=== PATIENT | male | born 1960 | race Caucasian/White ===

== ENCOUNTER 2017-10-01 17:47 | Inpatient (IN) | payer MEDICARE, MEDICAID ==
[~2017-10-01] VITALS: Ht 175.3 cm; Wt 77.5 kg
[2017-10-01] MEDS ORDERED: acetaminophen 325mg tablet PO PRN (19:15)
[2017-10-01] MEDS ORDERED: magnesium hydroxide 30ml (MOM) UD suspension PO PRN (19:15)
[2017-10-01] MEDS ORDERED: mag hydrox/Alum hydrox/simeth 30ml oral suspension PO PRN (19:15)
[2017-10-01 20:00] VITALS: BP 107/76
[2017-10-01] MEDS: hydrOXYzine 25 MG tablet PO PRN (20:12)
[2017-10-01] MEDS: LORazepam 1 MG tablet PO PRN (22:51)
[2017-10-02] MEDS ORDERED: buprenorphine/naloxone 2-0.5mg sublingual tablet SL ONE ×2 (07:50→21:20)
[2017-10-02] MEDS ORDERED: diphenoxylate/atropine tablet (Lomotil) PO PRN (07:50)
[2017-10-02 08:15] VITALS: BP 126/76
[2017-10-02 09:05] LABS: HEMOGLOBIN A1C 6.3 % (4.5-6.2)
[2017-10-02] MEDS ORDERED: mag hydrox/Alum hydrox/simeth 30ml oral suspension PO PRN (09:05)
[2017-10-02] MEDS ORDERED: acetaminophen 325mg tablet PO PRN ×2 (09:05)
[2017-10-02] MEDS ORDERED: HYDROcodone/acetaminophen 5mg/325mg tablet PO PRN (09:05)
[2017-10-02] MEDS ORDERED: HYDROcodone/acetaminophen 10/325mg tab PO PRN (09:05)
[2017-10-02] MEDS ORDERED: ondansetron/PF 4mg/2ml inj IV PRN (09:05)
[2017-10-02] MEDS ORDERED: magnesium hydroxide 30ml (MOM) UD suspension PO PRN (09:05)
[2017-10-02] MEDS ORDERED: diphenhydrAMINE 50 mg/ml inj IV PRN (09:05)
[2017-10-02] MEDS ORDERED: HYDROmorphone 1 mg/ml syringe IV PRN ×2 (09:05)
[2017-10-02] MEDS ORDERED: acetaminophen 650mg rectal suppository RC PRN (09:05)
[2017-10-02] MEDS ORDERED: morphine 4 MG/ML inj SYRINge IV PRN ×2 (09:05)
[2017-10-02] MEDS ORDERED: metoclopramide 5 mg/ml inj IV PRN (09:05)
[2017-10-02] MEDS ORDERED: bisacodyl 10mg suppository rectal RC PRN (09:05)
[2017-10-02 09:09] LABS: CHOL/HDL RATIO 3.3 (0.00-4.99); CHOLESTEROL 156 MG/DL (0-200); HDL CHOLESTEROL 48 MG/DL (35-60); LDL CHOLESTEROL 95 MG/DL (50-100); TRIGLYCERIDES 57 MG/DL (20-135)
[2017-10-02 09:37] LABS: MAGNESIUM 1.8 MG/DL (1.5-2.4)
[2017-10-02] MEDS ORDERED: NO HOME MEDS (10:23)
[2017-10-02] MEDS ORDERED: buprenorphine/naloxone 2-0.5mg sublingual tablet SL STA ×2 (10:52→17:42)
[2017-10-02] MEDS ORDERED: cloNIDine 0.1 mg tablet PO ONE (10:55)
[2017-10-02] MEDS: hydrOXYzine 25 MG tablet PO PRN (17:07)
[2017-10-02 19:00] VITALS: BP 121/76
[2017-10-02] MEDS ORDERED: heparin, porcine 5000 units/ml vial SQ SCH (20:00)
[2017-10-02] MEDS: docusate sod 100mg capsule PO SCH ×2 (20:00→20:28)
[2017-10-02] MEDS: cloNIDine 0.1 mg tablet PO SCH (20:28)
[2017-10-02] MEDS ORDERED: BUPRENORPHINE 2 MG SL ONE (21:00)
[2017-10-02] MEDS ORDERED: temazepam 15mg capsule PO PRN (21:00)
[2017-10-02] MEDS ORDERED: traZODone 50mg tablet PO SCH (21:00)
[2017-10-02] MEDS: traZODone 50mg tablet PO SCH ×2 (21:05→21:39)
[2017-10-03] MEDS: LORazepam 1 MG tablet PO PRN ×2 (07:31→15:55)
[2017-10-03] MEDS: pantoprazole 40mg Tablet.DR PO SCH (07:32)
[2017-10-03] MEDS: cloNIDine 0.1 mg tablet PO SCH ×3 (07:33→21:11)
[2017-10-03 07:44] VITALS: BP 104/55
[2017-10-03] MEDS: docusate sod 100mg capsule PO SCH ×2 (07:50→19:06)
[2017-10-03] MEDS ORDERED: buprenorphine/naloxone 2-0.5mg sublingual tablet SL SCH (08:00)
[2017-10-03] MEDS: hydrOXYzine 25 MG tablet PO PRN ×2 (13:31→19:34)
[2017-10-03 19:00] VITALS: BP 124/75
[2017-10-03] MEDS: buprenorphine/naloxone 2-0.5mg sublingual tablet SL SCH (19:06)
[2017-10-03] MEDS: mirtazapine 15mg tablet PO SCH (21:11)
[2017-10-03] MEDS: traZODone 50mg tablet PO SCH (21:11)
[2017-10-04] MEDS: LORazepam 1 MG tablet PO PRN ×2 (00:04→09:56)
[2017-10-04] MEDS: hydrOXYzine 25 MG tablet PO PRN ×2 (02:12→07:47)
[2017-10-04] MEDS: buprenorphine/naloxone 2-0.5mg sublingual tablet SL SCH ×2 (07:04→20:19)
[2017-10-04] MEDS: cloNIDine 0.1 mg tablet PO SCH ×4 (07:04→20:15)
[2017-10-04] MEDS: pantoprazole 40mg Tablet.DR PO SCH (07:04)
[2017-10-04] MEDS: docusate sod 100mg capsule PO SCH ×2 (07:06→20:00)
[2017-10-04 08:00] VITALS: BP 120/74
[2017-10-04] MEDS ORDERED: LORazepam 1 MG tablet PO PRN (14:00)
[2017-10-04 15:20] VITALS: BP 132/77
[2017-10-04 19:00] VITALS: BP 110/77
[2017-10-04] MEDS: mirtazapine 15mg tablet PO SCH (20:14)
[2017-10-04] MEDS: traZODone 50mg tablet PO SCH (20:14)
[2017-10-04] MEDS: OLANZapine 2.5MG tablet PO SCH (20:16)
[2017-10-04] MEDS: olanzapine 10mg tablet PO PRN (23:14)
[2017-10-05] MEDS ORDERED: olanzapine 10mg tablet PO PRN (01:20)
[2017-10-05 08:00] VITALS: BP 99/68
[2017-10-05] MEDS: docusate sod 100mg capsule PO SCH ×2 (08:00→20:00)
[2017-10-05] MEDS: cloNIDine 0.1 mg tablet PO SCH ×2 (08:00→20:00)
[2017-10-05] MEDS: pantoprazole 40mg Tablet.DR PO SCH (08:15)
[2017-10-05] MEDS: buprenorphine/naloxone 2-0.5mg sublingual tablet SL SCH ×2 (08:16→20:33)
[2017-10-05] MEDS: LORazepam 1 MG tablet PO PRN ×2 (11:51→20:33)
[2017-10-05] MEDS: hydrOXYzine 25 MG tablet PO PRN ×2 (14:42→22:04)
[2017-10-05] MEDS: diphenhydrAMINE 25mg capsule PO PRN (14:43)
[2017-10-05] MEDS: ondansetron 4mg rapidly disintigrating tab PO PRN (14:43)
[2017-10-05 20:00] VITALS: BP 104/71
[2017-10-05] MEDS: OLANZapine 2.5MG tablet PO SCH (20:33)
[2017-10-05] MEDS: traZODone 50mg tablet PO SCH (20:37)
[2017-10-05] MEDS: mirtazapine 15mg tablet PO SCH (20:57)
[2017-10-06] MEDS: olanzapine 10mg tablet PO PRN (00:19)
[2017-10-06] MEDS: diphenhydrAMINE 25mg capsule PO PRN ×2 (03:38→22:17)
[2017-10-06] MEDS: pantoprazole 40mg Tablet.DR PO SCH (07:59)
[2017-10-06 08:00] VITALS: BP 107/74
[2017-10-06] MEDS ORDERED: buprenorphine/naloxone 2-0.5mg sublingual tablet SL SCH ×2 (08:00→18:00)
[2017-10-06] MEDS: docusate sod 100mg capsule PO SCH ×2 (08:00→20:26)
[2017-10-06] MEDS: cloNIDine 0.1 mg tablet PO SCH ×2 (08:00→20:00)
[2017-10-06] MEDS: LORazepam 1 MG tablet PO PRN ×2 (08:29→22:17)
[2017-10-06] MEDS ORDERED: tuberculin, purif. prot. deriv. 5 units/0.1ml ID ONE (11:05)
[2017-10-06] MEDS: QUEtiapine 25mg tablet PO PRN (13:09)
[2017-10-06] MEDS: hydrOXYzine 25 MG tablet PO PRN ×2 (17:42→23:44)
[2017-10-06] MEDS ORDERED: buprenorphine/naloxone 2-0.5mg sublingual tablet SL ONE (19:15)
[2017-10-06 19:39] VITALS: BP 124/70
[2017-10-06] MEDS: mirtazapine 15mg tablet PO SCH (20:26)
[2017-10-06] MEDS ORDERED: quetiapine 100mg tablet PO SCH (21:00)
[2017-10-06] MEDS: traZODone 50mg tablet PO SCH (22:17)
[2017-10-07] MEDS: QUEtiapine 25mg tablet PO PRN (01:37)
[2017-10-07] MEDS: docusate sod 100mg capsule PO SCH ×2 (07:51→20:42)
[2017-10-07] MEDS: cloNIDine 0.1 mg tablet PO SCH (07:52)
[2017-10-07] MEDS: buprenorphine/naloxone 2-0.5mg sublingual tablet SL SCH ×2 (07:52→18:31)
[2017-10-07] MEDS: pantoprazole 40mg Tablet.DR PO SCH (07:52)
[2017-10-07] MEDS: hydrOXYzine 25 MG tablet PO PRN ×2 (07:59→16:27)
[2017-10-07 08:00] VITALS: BP 125/80
[2017-10-07] MEDS: LORazepam 1 MG tablet PO PRN ×2 (09:29→21:59)
[2017-10-07] MEDS ORDERED: lurasidone 20mg tablet PO SCH (18:00)
[2017-10-07 19:28] VITALS: BP 125/81
[2017-10-07] MEDS ORDERED: prazosin 1mg capsule PO SCH (21:00)
[2017-10-07] MEDS: mirtazapine 15mg tablet PO SCH (21:59)
[2017-10-07] MEDS: diphenhydrAMINE 25mg capsule PO PRN (21:59)
[2017-10-08] MEDS: hydrOXYzine 25 MG tablet PO PRN ×2 (00:25→13:49)
[2017-10-08] MEDS: diphenhydrAMINE 25mg capsule PO PRN (04:17)
[2017-10-08] MEDS: pantoprazole 40mg Tablet.DR PO SCH (07:23)
[2017-10-08] MEDS: buprenorphine/naloxone 2-0.5mg sublingual tablet SL SCH ×3 (07:23→18:43)
[2017-10-08] MEDS: cloNIDine 0.1 mg tablet PO SCH (07:23)
[2017-10-08] MEDS: docusate sod 100mg capsule PO SCH ×2 (07:23→21:30)
[2017-10-08 07:48] VITALS: BP 120/68
[2017-10-08] MEDS: LORazepam 1 MG tablet PO PRN ×2 (07:57→22:55)
[2017-10-08] MEDS ORDERED: OLANZapine 2.5MG tablet PO ONE (16:55)
[2017-10-08 19:11] VITALS: BP 145/76
[2017-10-08] MEDS: OLANZapine 5mg rapidly disint. tablet PO PRN (20:13)
[2017-10-08 20:30] VITALS: BP 121/78
[2017-10-08] MEDS: mirtazapine 15mg tablet PO SCH (21:30)
[2017-10-08] MEDS: prazosin 1mg capsule PO SCH (21:31)
[2017-10-09] MEDS: hydrOXYzine 25 MG tablet PO PRN ×4 (00:29→21:44)
[2017-10-09] MEDS: OLANZapine 5mg rapidly disint. tablet PO PRN ×4 (01:10→23:14)
[2017-10-09] MEDS: cloNIDine 0.1 mg tablet PO SCH (07:05)
[2017-10-09] MEDS: buprenorphine/naloxone 2-0.5mg sublingual tablet SL SCH ×2 (07:07→19:09)
[2017-10-09] MEDS: docusate sod 100mg capsule PO SCH ×2 (07:08→21:42)
[2017-10-09] MEDS: pantoprazole 40mg Tablet.DR PO SCH (07:09)
[2017-10-09 08:19] VITALS: BP 105/68
[2017-10-09] MEDS: LORazepam 1 MG tablet PO PRN ×2 (11:24→21:44)
[2017-10-09] MEDS ORDERED: lurasidone 20mg tablet PO SCH (18:00)
[2017-10-09 19:00] VITALS: BP 115/74
[2017-10-09] MEDS ORDERED: zolpidem 5mg tablet PO SCH (21:00)
[2017-10-09] MEDS: prazosin 1mg capsule PO SCH (21:42)
[2017-10-09] MEDS: mirtazapine 15mg tablet PO SCH (21:42)
[2017-10-10] MEDS ORDERED: temazepam 15mg capsule PO ONE (01:10)
[2017-10-10 07:51] VITALS: BP 106/77
[2017-10-10] MEDS: buprenorphine/naloxone 2-0.5mg sublingual tablet SL SCH ×2 (08:09→19:02)
[2017-10-10] MEDS: LORazepam 1 MG tablet PO PRN ×2 (08:13→17:54)
[2017-10-10] MEDS: pantoprazole 40mg Tablet.DR PO SCH (08:14)
[2017-10-10] MEDS: docusate sod 100mg capsule PO SCH ×2 (08:14→20:37)
[2017-10-10 08:48] LABS: URINE AMPHETAMINE SCREEN NEGATIVE (Neg); URINE BARBITUATE SCREEN NEGATIVE (Neg); URINE BENZODIAZEPINES SCREEN POSITIVE (Neg); URINE CANNABINOID SCREEN POSITIVE (Neg); URINE COCAINE SCREEN NEGATIVE (Neg); URINE METHADONE SCREEN NEGATIVE (Neg); URINE OPIATE SCREEN NEGATIVE (Neg); URINE PHENCYCLIDINE SCREEN NEGATIVE (Neg)
[2017-10-10] MEDS: OLANZapine 5mg rapidly disint. tablet PO PRN ×2 (13:54→21:18)
[2017-10-10] MEDS: hydrOXYzine 25 MG tablet PO PRN (16:00)
[2017-10-10] MEDS: lurasidone 20mg tablet PO SCH (17:50)
[2017-10-10 19:00] VITALS: BP 123/78
[2017-10-10] MEDS: temazepam 15mg capsule PO PRN (20:37)
[2017-10-10] MEDS: mirtazapine 15mg tablet PO SCH (20:37)
[2017-10-10] MEDS: prazosin 5mg capsule PO SCH (21:17)
[2017-10-11] MEDS: OLANZapine 5mg rapidly disint. tablet PO PRN ×2 (03:16→18:50)
[2017-10-11 07:48] VITALS: BP 109/61
[2017-10-11] MEDS: pantoprazole 40mg Tablet.DR PO SCH (08:05)
[2017-10-11] MEDS: hydrOXYzine 25 MG tablet PO PRN ×2 (08:05→21:23)
[2017-10-11] MEDS: buprenorphine/naloxone 2-0.5mg sublingual tablet SL SCH ×2 (08:05→18:49)
[2017-10-11] MEDS: docusate sod 100mg capsule PO SCH ×2 (08:05→21:22)
[2017-10-11] MEDS: acetaminophen 325mg tablet PO PRN ×2 (12:45→21:23)
[2017-10-11] MEDS: LORazepam 1 MG tablet PO PRN ×2 (12:45→21:23)
[2017-10-11] MEDS: lurasidone 20mg tablet PO SCH (17:59)
[2017-10-11] MEDS: ondansetron 4mg rapidly disintigrating tab PO PRN (18:49)
[2017-10-11 19:00] VITALS: BP 119/76
[2017-10-11] MEDS: mirtazapine 15mg tablet PO SCH (21:22)
[2017-10-11] MEDS: prazosin 5mg capsule PO SCH (21:22)
[2017-10-11] MEDS: temazepam 15mg capsule PO PRN (21:23)
[2017-10-12] MEDS: OLANZapine 5mg rapidly disint. tablet PO PRN (02:47)
[2017-10-12] MEDS: hydrOXYzine 25 MG tablet PO PRN ×2 (04:53→16:26)
[2017-10-12 08:00] VITALS: BP 116/72
[2017-10-12] MEDS: pantoprazole 40mg Tablet.DR PO SCH (08:01)
[2017-10-12] MEDS: docusate sod 100mg capsule PO SCH ×2 (08:47→20:29)
[2017-10-12] MEDS: buprenorphine/naloxone 2-0.5mg sublingual tablet SL SCH ×2 (08:47→19:03)
[2017-10-12] MEDS: LORazepam 0.5 MG tablet PO PRN ×2 (09:41→21:14)
[2017-10-12] MEDS ORDERED: gabapentin 100mg capsule PO SCH (12:30)
[2017-10-12] MEDS: lurasidone 20mg tablet PO SCH (18:33)
[2017-10-12] MEDS: ondansetron 4mg rapidly disintigrating tab PO PRN (19:05)
[2017-10-12 19:18] VITALS: BP 109/77
[2017-10-12] MEDS: prazosin 5mg capsule PO SCH (20:29)
[2017-10-12] MEDS: mirtazapine 15mg tablet PO SCH (20:30)
[2017-10-12] MEDS ORDERED: gabapentin 300mg capsule PO ONE (21:00)
[2017-10-12] MEDS: acetaminophen 325mg tablet PO PRN (21:13)
[2017-10-13] MEDS: gabapentin 100mg capsule PO SCH ×2 (07:45→12:39)
[2017-10-13] MEDS: pantoprazole 40mg Tablet.DR PO SCH (07:45)
[2017-10-13] MEDS: docusate sod 100mg capsule PO SCH ×2 (07:46→20:47)
[2017-10-13] MEDS: buprenorphine/naloxone 2-0.5mg sublingual tablet SL SCH ×2 (07:46→18:46)
[2017-10-13 08:00] VITALS: BP 124/74
[2017-10-13] MEDS: LORazepam 0.5 MG tablet PO PRN ×2 (09:16→21:30)
[2017-10-13] MEDS: acetaminophen 325mg tablet PO PRN ×2 (09:17→21:30)
[2017-10-13] MEDS: hydrOXYzine 25 MG tablet PO PRN (12:39)
[2017-10-13] MEDS: ondansetron 4mg rapidly disintigrating tab PO PRN ×2 (12:42→20:47)
[2017-10-13] MEDS: lurasidone 20mg tablet PO SCH (17:49)
[2017-10-13 20:10] VITALS: BP 127/70
[2017-10-13] MEDS: prazosin 5mg capsule PO SCH (20:42)
[2017-10-13] MEDS: mirtazapine 15mg tablet PO SCH (20:43)
[2017-10-13] MEDS: temazepam 15mg capsule PO PRN (20:46)
[2017-10-13] MEDS ORDERED: gabapentin 400mg capsule PO SCH (21:00)
[2017-10-14] MEDS: hydrOXYzine 25 MG tablet PO PRN ×3 (03:30→23:32)
[2017-10-14] MEDS: acetaminophen 325mg tablet PO PRN (06:59)
[2017-10-14] MEDS: LORazepam 0.5 MG tablet PO PRN (06:59)
[2017-10-14] MEDS: buprenorphine/naloxone 2-0.5mg sublingual tablet SL SCH ×2 (07:55→17:50)
[2017-10-14] MEDS: docusate sod 100mg capsule PO SCH ×2 (07:55→20:17)
[2017-10-14] MEDS: pantoprazole 40mg Tablet.DR PO SCH (07:55)
[2017-10-14] MEDS: gabapentin 400mg capsule PO SCH ×3 (07:55→20:17)
[2017-10-14 08:00] VITALS: BP 117/80
[2017-10-14] MEDS: lurasidone 20mg tablet PO SCH (17:49)
[2017-10-14] MEDS: ondansetron 4mg rapidly disintigrating tab PO PRN (17:53)
[2017-10-14 19:22] VITALS: BP 122/74
[2017-10-14] MEDS: prazosin 5mg capsule PO SCH (20:17)
[2017-10-14] MEDS: temazepam 15mg capsule PO PRN (20:17)
[2017-10-14] MEDS: mirtazapine 15mg tablet PO SCH (20:17)
[2017-10-15] MEDS: acetaminophen 325mg tablet PO PRN (07:02)
[2017-10-15 08:00] VITALS: BP 102/67
[2017-10-15] MEDS: pantoprazole 40mg Tablet.DR PO SCH (08:06)
[2017-10-15] MEDS: docusate sod 100mg capsule PO SCH ×2 (08:06→21:55)
[2017-10-15] MEDS: buprenorphine/naloxone 2-0.5mg sublingual tablet SL SCH ×2 (08:06→18:54)
[2017-10-15] MEDS ORDERED: gabapentin 400mg capsule PO ONE (08:15)
[2017-10-15] MEDS: gabapentin 400mg capsule PO SCH ×2 (12:43→21:55)
[2017-10-15] MEDS: lurasidone 60mg tablet PO SCH (18:04)
[2017-10-15 19:00] VITALS: BP 140/79
[2017-10-15] MEDS: temazepam 15mg capsule PO PRN (21:54)
[2017-10-15] MEDS: mirtazapine 15mg tablet PO SCH (21:54)
[2017-10-15] MEDS: prazosin 5mg capsule PO SCH (21:56)
[2017-10-16] MEDS: ondansetron 4mg rapidly disintigrating tab PO PRN ×2 (04:04→21:25)
[2017-10-16] MEDS: acetaminophen 325mg tablet PO PRN ×2 (06:48→20:36)
[2017-10-16] MEDS: buprenorphine/naloxone 2-0.5mg sublingual tablet SL SCH ×2 (07:45→18:40)
[2017-10-16] MEDS: docusate sod 100mg capsule PO SCH ×2 (07:46→20:37)
[2017-10-16] MEDS: pantoprazole 40mg Tablet.DR PO SCH (07:46)
[2017-10-16] MEDS: gabapentin 400mg capsule PO SCH ×3 (07:46→20:37)
[2017-10-16 08:13] VITALS: BP 100/64
[2017-10-16] MEDS: hydrOXYzine 25 MG tablet PO PRN ×2 (09:42→20:37)
[2017-10-16] MEDS ORDERED: LIDOcaine 5% patch TP PRN (09:50)
[2017-10-16] MEDS: lurasidone 60mg tablet PO SCH ×2 (18:00→20:47)
[2017-10-16 20:09] VITALS: BP 142/85
[2017-10-16] MEDS: prazosin 5mg capsule PO SCH (20:35)
[2017-10-16] MEDS: mirtazapine 15mg tablet PO SCH (20:37)
[2017-10-16] MEDS ORDERED: OLANZapine 5mg rapidly disint. tablet PO PRN (21:05)
[2017-10-16 21:55] LABS: URINE AMPHETAMINE SCREEN NEGATIVE (Neg); URINE BARBITUATE SCREEN NEGATIVE (Neg); URINE BENZODIAZEPINES SCREEN NEGATIVE (Neg); URINE CANNABINOID SCREEN POSITIVE (Neg); URINE COCAINE SCREEN NEGATIVE (Neg); URINE METHADONE SCREEN NEGATIVE (Neg); URINE OPIATE SCREEN NEGATIVE (Neg); URINE PHENCYCLIDINE SCREEN NEGATIVE (Neg)
[2017-10-17] MEDS: acetaminophen 325mg tablet PO PRN (06:00)
[2017-10-17] MEDS: gabapentin 400mg capsule PO SCH ×2 (07:16→12:27)
[2017-10-17] MEDS: pantoprazole 40mg Tablet.DR PO SCH (07:16)
[2017-10-17] MEDS: buprenorphine/naloxone 2-0.5mg sublingual tablet SL SCH (07:22)
[2017-10-17] MEDS: docusate sod 100mg capsule PO SCH (07:22)
[2017-10-17 07:45] VITALS: BP 101/61
[2017-10-17] MEDS ORDERED: PANT40TA4 PO (08:14)
[2017-10-17] MEDS ORDERED: HYDR50TA65 PO (08:14)
[2017-10-17] MEDS ORDERED: COL100C PO (08:14)
[2017-10-17] MEDS ORDERED: TEMA30CA PO (08:14)
[2017-10-17] MEDS ORDERED: LURA120T PO (08:14)
[2017-10-17] MEDS ORDERED: PRAZ5CAP2 PO (08:14)
[2017-10-17] MEDS ORDERED: GABA-534 PO ×2 (08:14)
[2017-10-17] MEDS ORDERED: BUPR1TAB52 SL (08:14)
[2017-10-17] MEDS ORDERED: MIRT15TA8 PO (08:14)
[2017-10-17] MEDS: hydrOXYzine 25 MG tablet PO PRN (10:04)
[2017-10-17] MEDS ORDERED: LIDOcaine 5% patch TP ONE (11:55)
== END 2017-10-17 13:40 | DRG 885 ==
LOC: ADULT MH 17:47
PROVIDERS: ADMIT Psychiatry & Neurology Psychiatry; ATTEND Psychiatry & Neurology Psychiatry
DX: F33.2 Major depressive disorder, recurrent severe without psychotic features (principal); R45.851 Suicidal ideations; F15.20 Other stimulant dependence, uncomplicated; F19.90 Other psychoactive substance use, unspecified, uncomplicated; F11.21 Opioid dependence, in remission; F12.90 Cannabis use, unspecified, uncomplicated; F14.90 Cocaine use, unspecified, uncomplicated; F43.10 Post-traumatic stress disorder, unspecified; F60.9 Personality disorder, unspecified; G89.4 Chronic pain syndrome; E03.9 Hypothyroidism, unspecified; K30 Functional dyspepsia; L98.9 Disorder of the skin and subcutaneous tissue, unspecified; Z59.0 Homelessness; Z88.8 Allergy status to other drugs, medicaments and biological substances; Z87.442 Personal history of urinary calculi; Z87.820 Personal history of traumatic brain injury; Z71.51 Drug abuse counseling and surveillance of drug abuser
CPT/HCPCS: 36415; 70450; 80061; 80305; 83036; 83735; 84439; 84479; 84480; 87070; 99285; J1170; J3490; Q0163; Q0177

== ENCOUNTER → 2017-10-01 | Emergency (ER) | payer MEDICARE, MEDICAID ==
[~2017-10-01] VITALS: Ht 175.3 cm; Wt 74.7 kg
[~2017-10-01] MED LIST: NO HOME MEDS
[2017-10-01 15:28] LABS: URINE AMPHETAMINE SCREEN POSITIVE (Neg); URINE BARBITUATE SCREEN NEGATIVE (Neg); URINE BENZODIAZEPINES SCREEN NEGATIVE (Neg); URINE CANNABINOID SCREEN POSITIVE (Neg); URINE COCAINE SCREEN NEGATIVE (Neg); URINE METHADONE SCREEN NEGATIVE (Neg); URINE OPIATE SCREEN POSITIVE (Neg); URINE PHENCYCLIDINE SCREEN NEGATIVE (Neg)
[2017-10-01 15:31] LABS: CLARITY,URINE CLEAR (Clear); COLOR,URINE YELLOW (Yellow); GLUCOSE, URINE NEGATIVE (Neg); KETONES,URINE NEGATIVE (Neg); LEUKOCYTE ESTERASE ,URINE NEGATIVE (Neg); NITRITES, URINE NEGATIVE (Neg); OCCULT BLOOD,URINE NEGATIVE (Neg); PROTEIN,URINE NEGATIVE (Neg); UROBILINOGEN,URINE 0.2 E.U/dL (0.2-1.0)
[2017-10-01 15:32] LABS: UA COLLECTION TYPE CLN CATCH MIDSTREAM
[2017-10-01 15:38] LABS: BASOPHILS % (AUTO) 0.2 % (0-1); EOSINOPHILS # (AUTO) 0.1 X10'3 (0-0.9); EOSINOPHILS % (AUTO) 1.1 % (0-6); HEMATOCRIT 41.2 % (42.0-52.0); LYMPHOCYTES # (AUTO) 1.6 X10'3 (1.1-4.8); LYMPHOCYTES % (AUTO) 15.5 % (21-51); MEAN CORPUSCULAR HEMOGLOBIN 29.2 PG (27.0-31.0); MEAN PLATELET VOLUME 8.4 FL (7.4-10.4); MONOCYTES # (AUTO) 0.6 X10'3 (0-0.9); MONOCYTES % (AUTO) 5.9 % (2-12); NEUTROPHILS % (AUTO) 77.3 % (42-75); PLATELET COUNT 282 X10'3 (140-440); RED BLOOD COUNT 4.79 X10'6 (4.70-6.10); RED CELL DISTRIBUTION WIDTH 14.5 % (11.5-14.5); WHITE BLOOD COUNT 10.3 X10'3 (4.5-11.0)
[2017-10-01 15:56] LABS: ALANINE AMINOTRANSFERASE 15 U/L (12-78); ALBUMIN 3.3 G/DL (3.4-5.0); ALBUMIN/GLOBULIN RATIO 0.9 (1.1-1.5); ALKALINE PHOSPHATASE 93 IU/L (46-116); ANION GAP 4 (8-16); ASPARTATE AMINO TRANSFERASE 10 U/L (10-37); BILIRUBIN,TOTAL 0.2 MG/DL (0.1-1.0); BLOOD UREA NITROGEN 15 MG/DL (7-18); BUN/CREATININE RATIO 15.6 (5.4-32.0); CALCIUM 8.5 MG/DL (8.5-10.1); CHLORIDE 104 MMOL/L (99-107); CREATININE 0.96 MG/DL (0.60-1.10); GLUCOSE 153 MG/DL (70-104); POTASSIUM 4.4 MMOL/L (3.5-5.1); SODIUM 138 MMOL/L (135-145); TOTAL CARBON DIOXIDE 29.6 MMOL/L (24-32); TOTAL PROTEIN 6.8 G/DL (6.4-8.2); eGFR 81 ML/MIN
[2017-10-01 16:04] LABS: ETHANOL < 0.010 GM/DL (0.0-0.010)
[2017-10-01 17:24] VITALS: BP 110/62
== END | disposition home or self-care (01) ==
LOC: ER 14:30
DX: F32.9 Major depressive disorder, single episode, unspecified (principal); R45.851 Suicidal ideations; F15.10 Other stimulant abuse, uncomplicated; G89.29 Other chronic pain; F12.90 Cannabis use, unspecified, uncomplicated; F14.90 Cocaine use, unspecified, uncomplicated; F11.90 Opioid use, unspecified, uncomplicated; Z87.442 Personal history of urinary calculi; Z88.8 Allergy status to other drugs, medicaments and biological substances
CPT/HCPCS: 36415; 80053; 80305; 80320; 81003; 84443; 85025; 99284

== ENCOUNTER 2017-10-19 06:21 | Emergency (ER) | payer MEDICARE, MEDICAID ==
[~2017-10-19] VITALS: Ht 175.3 cm; Wt 77.3 kg
[~2017-10-19 06:21] MED LIST changes: +BUPR1TAB52 SL; +COL100C PO; +GABA-534 PO; +HYDR50TA65 PO; +LURA120T PO; +MIRT15TA8 PO; +PANT40TA4 PO; +PRAZ5CAP2 PO; +TEMA30CA PO
[2017-10-19 06:26] VITALS: BP 101/79
[2017-10-19] MEDS ORDERED: normal saline 1000ML IV soln IVB ONE (06:30)
[2017-10-19 07:26] LABS: BASOPHILS % (AUTO) 0.3 % (0-1); EOSINOPHILS # (AUTO) 0.2 X10'3 (0-0.9); EOSINOPHILS % (AUTO) 2.7 % (0-6); HEMATOCRIT 39.1 % (42.0-52.0); HEMOGLOBIN 13.4 g/dl (14.0-17.9); LYMPHOCYTES # (AUTO) 1.3 X10'3 (1.1-4.8); LYMPHOCYTES % (AUTO) 19.3 % (21-51); MEAN CORPUSCULAR HEMOGLOBIN 28.9 PG (27.0-31.0); MEAN CORPUSCULAR HGB CONC 34.3 % (33.0-36.5); MEAN CORPUSCULAR VOLUME 84.2 FL (78-98); MONOCYTES # (AUTO) 0.6 X10'3 (0-0.9); NEUTROPHILS # (AUTO) 4.6 X10'3 (1.8-7.7); NEUTROPHILS % (AUTO) 68.7 % (42-75); PLATELET COUNT 192 X10'3 (140-440); RED BLOOD COUNT 4.65 X10'6 (4.70-6.10); RED CELL DISTRIBUTION WIDTH 14.7 % (11.5-14.5); WHITE BLOOD COUNT 6.7 X10'3 (4.5-11.0)
[2017-10-19 07:40] LABS: ALANINE AMINOTRANSFERASE 25 U/L (12-78); ALBUMIN 3.3 G/DL (3.4-5.0); ALKALINE PHOSPHATASE 80 IU/L (46-116); ANION GAP 7 (8-16); ASPARTATE AMINO TRANSFERASE 17 U/L (10-37); BILIRUBIN,TOTAL 0.3 MG/DL (0.1-1.0); BLOOD UREA NITROGEN 15 MG/DL (7-18); BUN/CREATININE RATIO 16.5 (5.4-32.0); CALCIUM 8.7 MG/DL (8.5-10.1); CHLORIDE 103 MMOL/L (99-107); CREATININE 0.91 MG/DL (0.60-1.10); GLUCOSE 119 MG/DL (70-104); POTASSIUM 3.7 MMOL/L (3.5-5.1); SODIUM 140 MMOL/L (135-145); TOTAL CARBON DIOXIDE 30.2 MMOL/L (24-32); TOTAL PROTEIN 6.6 G/DL (6.4-8.2); eGFR 86 ML/MIN
[2017-10-19 07:41] LABS: ETHANOL < 0.010 GM/DL (0.0-0.010)
[2017-10-19 08:25] LABS: URINE AMPHETAMINE SCREEN NEGATIVE (Neg); URINE BARBITUATE SCREEN NEGATIVE (Neg); URINE BENZODIAZEPINES SCREEN NEGATIVE (Neg); URINE CANNABINOID SCREEN POSITIVE (Neg); URINE COCAINE SCREEN NEGATIVE (Neg); URINE METHADONE SCREEN NEGATIVE (Neg); URINE OPIATE SCREEN NEGATIVE (Neg); URINE PHENCYCLIDINE SCREEN NEGATIVE (Neg)
== END 2017-10-19 10:50 | disposition home or self-care (01) ==
LOC: ER 06:22
DX: G47.00 Insomnia, unspecified (principal); K11.7 Disturbances of salivary secretion; G89.29 Other chronic pain; R11.2 Nausea with vomiting, unspecified; F17.200 Nicotine dependence, unspecified, uncomplicated; F12.90 Cannabis use, unspecified, uncomplicated; F15.90 Other stimulant use, unspecified, uncomplicated; F14.90 Cocaine use, unspecified, uncomplicated; F11.90 Opioid use, unspecified, uncomplicated; Z87.442 Personal history of urinary calculi; Z88.8 Allergy status to other drugs, medicaments and biological substances; Z79.899 Other long term (current) drug therapy
CPT/HCPCS: 36415; 80053; 80305; 80320; 85025; 96360; 99284; J7030

== ENCOUNTER 2024-10-31 10:48 | Emergency (ER) | payer MEDICARE, MEDICAID ==
[~2024-10-31] VITALS: Ht 177.8 cm; Wt 77.0 kg
[~2024-10-31 10:48] MED LIST changes: +BUPR1FIL17 SL; +BUPR1TAB44 SL; -BUPR1TAB52 SL; +ESZO1TAB8 PO; +GABA-1555 PO; -GABA-534 PO; +GABA-535 PO; +LURA40TA2 PO; +MIRT-87 PO; -MIRT15TA8 PO; -NO HOME MEDS; +ONDA4TAB9 SL; +PANT-47 PO; -PANT40TA4 PO; +PANT40TA54 PO
[2024-10-31 11:00] VITALS: BP 131/65; PULSE 80; RESP 18; TEMP 98.4; O2SAT 94
--- NOTE | 2024-10-31 12:10 | Physician Documentation ---
History of Present Illness ~ Chief Complaint: Leg Pain Stated Complaint: REVIST Time Seen by MD: 11:53 Primary Medical Doctor: MICHAEL [place]: [place] Mode of Arrival: POV HPI This is a 64-year-old male who presents with worsening right lower leg erythema and swelling, patient reports that he was recently treated for wounds to the legs with antibiotics at a urgent care and the redness and swelling was decreasing though yesterday the redness began increasing. Patient has been directed to present to the emergency department if the redness and swelling increased. Patient reports unsure of what antibiotic he was placed on. Patient reports he does have history of MRSA. Patient reports no fever, chills, or other systemic symptoms. Patient reports no other acute symptoms or concerns. Tetanus witin 5 years: Yes Medication Reconciliation Allergies: Coded Allergies: ketorolac (Verified Allergy, Intermediate, 10/31/24) tramadol (Verified Allergy, Intermediate, 10/31/24) Scheduled Buprenorphine HCl/Naloxone HCl (Buprenorphn-Naloxn 2-0.5 mg Tb), 3 TAB SL BID Buprenorphine Hcl/Naloxone Hcl (Suboxone 2 Mg-0.5 Mg Sl Film), 3 STRIP SL BID, (Reported) Eszopiclone (Lunesta), 2 TAB PO HS, (Reported) Gabapentin (Gabapentin), 800 MG PO HS Gabapentin (Gabapentin), 400 MG PO BIDBL Gabapentin (Gabapentin), 1 CAP PO BID, (Reported) Gabapentin (Gabapentin), 1 TAB PO HS, (Reported) Hydroxyzine HCl (Hydroxyzine HCl), 1 TAB PO TID Lurasidone HCl (Latuda), 1 TAB PO HS Lurasidone HCl (Latuda), 1 TAB PO HS, (Reported) Mirtazapine (Mirtazapine), 15 MG PO HS Ondansetron* (Zofran Odt*), 1 TAB SL BID, (Reported) Pantoprazole Sodium (Pantoprazole Sodium), 40 MG PO BKF Pantoprazole Sodium (PROTONIX tablet), 40 MG PO DAILY, (Reported) Prazosin HCl (Prazosin HCl), 15 MG PO HS Temazepam (Temazepam), 1 CAP PO HSPRN Temazepam (Temazepam), 1 CAP PO HSPRN, (Reported) Scheduled PRN Docusate Sodium (Docusate Sodium), 100 MG PO BID PRN for constipation Past Medical History Past Medical History: Kidney Stones, Chronic Back Pain, Depression Past Surgical History: noncontributory Patient History: Patient reports no known family medical history. Alcohol Use: Occasionally Drug Use: marijuana, methamphetamine, cocaine, heroin Lives with: Family Lives In: Home Occupation: disabled Review of Systems ROS Right lower leg pain and swelling as stated above in the HPI, otherwise all systems are reviewed and negative. Physical Exam Vital Signs: Temperature: 98.4, Source: Oral, Heart Rate: 80, Respiratory Rate: 18, BP: 131/65, Pulse Oximetry: 94, Weight: 77.000 Physical Exam VITALS: Reviewed and as above. GENERAL: Alert, nontoxic appearing, no apparent distress. RESPIRATORY: No increased work of breathing, no respiratory distress, clear lung sounds in all up CV: Regular rate and rhythm no murmur SKIN: Right anterior lower extremity two isolated areas of erythema with induration and tenderness to palpation with shallow open wounds at the center, each wound is approximately 1-1/2 cm round, no fluctuance, no exudates. Erythema and induration is not circumferential. Progress Progress Note 1335: I spoke with hospitalist attending Dr. Gage who kindly accepts patient for admission 1348: Prior to evaluation by Dr. Gage patient reports that he has been unable to find care for his dog and therefore will be leaving against medical advice, I spoke with Dr. Gage who will be cancelling admission orders as patient is leaving against medical advice. Results/Orders Results/Orders Vital Signs 10/31/24 10/31/24 11:00 11:30 Temp 98.4 Pulse 80 Resp 18 B/P (MAP) 131/65 Pulse Ox 94 Laboratory Tests Test 10/31/24 12:12 White Blood Count 4.5 Red Blood Count 4.19 L Hemoglobin 12.5 L Hematocrit 36.7 L Mean Corpuscular Volume 87.6 Mean Corpuscular Hemoglobin 30.0 Mean Corpuscular Hemoglobin Concent 34.2 Red Cell Distribution Width 13.3 Platelet Count 323 Mean Platelet Volume 7.9 Neutrophils (%) (Auto) 59.4 Lymphocytes (%) (Auto) 20.9 L Monocytes (%) (Auto) 15.9 H Eosinophils (%) (Auto) 3.2 Basophils (%) (Auto) 0.6 Neutrophils # (Auto) 2.7 Lymphocytes # (Auto) 0.9 L Monocytes # (Auto) 0.7 Eosinophils # (Auto) 0.1 Basophils # (Auto) 0.0 CBC Comment Differential Total Cells Counted 100 Neutrophils % (Manual) 57.0 Lymphocytes % (Manual) 29.0 Monocytes % (Manual) 13.0 H Eosinophils % (Manual) 1.0 Platelet Estimate Normal Red Blood Cell Morphology Normal Basophilic Stippling Sodium Level 130 L Potassium Level 4.0 Chloride Level 99 Carbon Dioxide Level 30.0 Anion Gap 1 L Blood Urea Nitrogen 19 H Creatinine 0.85 Estimated GFR/1.73 m2 > 90 BUN/Creatinine Ratio 22.4 H Glucose Level 204 H Calcium Level 8.5 Albumin 3.2 L Chemistry Comments Medical Decision Making Findings This 64-year-old male presented with worsening erythema swelling, and pain to right lower leg, on exam there were two open wounds and erythema and swelling is consistent with cellulitis given erythema and induration without fluctuance, as patient is currently on antibiotics with symptoms progressively worsening this represents outpatient antibiotic failure and patient would benefit from inpatient admission for IV antibiotics to treat suspected cellulitis. Patient is otherwise well-appearing and hemodynamically stable in the emergency department. It is reassuring patient is not reporting systemic symptoms including no fever and there was no pain out of proportion on exam to suggest more serious deep tissue infection. Hospitalist team paged and kindly accepts patient for admission, though prior to hospitalist evaluation and assumption of care of patient patient has chosen to leave against medical advice due to being unable to arrange care for his dog. Patient is to continue previously prescribed antibiotics and return to the emergency department for new or worsening symptoms. General Diff Dx:Considerations: Include: Fracture, Hematoma, Other (Abscess, sepsis, septicemia, necrotizing fasciitis) Departure Disposition: LEFT AGAINST MEDICAL ADVICE Impression: Primary Impression: Cellulitis of right lower extremity Condition: Guarded Additional Instructions: You have been advised that you require admission to the hospital due to your infection on your leg worsening despite being on oral antibiotics, you do require IV antibiotics to treat this infection, by leaving the hospital against medical advice this infection may worsen and threatened your limb or your life. Continue to take your previously prescribed antibiotics. Please follow up with your primary care provider in the next few days. Please return to the emergency department for any new or worsening concerning symptoms or if you change your mind about wanting to be admitted to the hospital for treatment. Referrals: NO PRIMARY CARE PROVIDER (PCP) Prescriptions Doxycycline Hyclate (Doxycycline Hyclate) 100 Mg Capsule 1 CAP PO Q12H for 7 Days, #14 CAP Prov: CLAUDE PAUL MD 11/01/24 Cephalexin (Cephalexin) 500 Mg Capsule 1 CAP PO Q6H for 7 Days, #28 CAP Prov: CLAUDE PAUL MD 11/01/24 Education Educated: Patient Educated regarding: diagnosis, treatment Signature Scribe Signature: No scribe Attestation: The note accurately reflects work and decisions made by me.MIKHAIL Culp 10/31/24 13:41 FROYLAN FELIPE Oct 31, 2024 12:10 CLAUDE PAUL MD Nov 01, 2024 07:26
[2024-10-31] MEDS: ibuprofen tablet 400 MG TABLET PO ONE (12:16)
[2024-10-31 12:35] LABS: MEAN PLATELET VOLUME 7.9 FL (7.4-10.4); RED CELL DISTRIBUTION WIDTH 13.3 % (11.5-14.5)
[2024-10-31 12:50] LABS: CREATININE 0.85 MG/DL (0.60-1.10); TOTAL CARBON DIOXIDE 30.0 MMOL/L (24-32); eCRCL 92 ML/MIN; eGFR > 90 ML/MIN
[2024-10-31 13:07] LABS: EOSINOPHILS % (MANUAL) 1.0 % (0-6); LYMPHOCYTES % (MANUAL) 29.0 % (21-51); MONOCYTES % (MANUAL) 13.0 % (2-12); NEUTROPHILS % (MANUAL) 57.0 % (42-75); PLATELET ESTIMATE NORMAL
[2024-10-31] MEDS ORDERED: potassium Cl 20 mEq SR tablet PO PRN ×2 (13:35)
[2024-10-31] MEDS ORDERED: potassium Cl 40MEQ/1/2NS 520ml 520 ML IV PRN (13:35)
[2024-10-31] MEDS ORDERED: magnesium sulf-water 2g/50mL 50 ML IV PRN (13:35)
[2024-10-31] MEDS ORDERED: magnesium sulf-water 4G/100mL 100 ML IV PRN (13:35)
[2024-10-31] MEDS ORDERED: magnesium Cl slow-release 64mg tablet PO PRN (13:35)
[2024-10-31] MEDS ORDERED: HYDROcodone/acetaminophen 10/325mg tab PO PRN (13:35)
[2024-10-31] MEDS ORDERED: ondansetron/PF 4mg/2ml inj IV PRN (13:35)
[2024-10-31] MEDS ORDERED: normal saline 1000ml 1,000 ML IV SCH (13:35)
[2024-10-31] MEDS ORDERED: HYDROcodone/acetaminophen 5mg/325mg tablet PO PRN (13:35)
[2024-10-31] MEDS ORDERED: vancomycin/NS 1 GM ADD-VANTAGE 250 ML IV SCH (14:00)
[2024-10-31] MEDS ORDERED: heparin, porcine 5000 units/ml vial SQ SCH (20:00)
[2024-11-01] MEDS ORDERED: DOXY-1 PO (07:26)
[2024-11-01] MEDS ORDERED: CEPH500C81 PO (07:26)
[2024-11-02] MEDS ORDERED: VANCOMYCIN LEVEL IV ONE (01:30)
== END 2024-10-31 14:05 | disposition left against medical advice (07) ==
LOC: ER 10:49 → UNDOADMIN 13:37 → ED HOLD 13:37 → UNDODISIN 14:01
DX: L03.115 Cellulitis of right lower limb (principal); F32.A Depression, unspecified; M54.9 Dorsalgia, unspecified; Z88.8 Allergy status to other drugs, medicaments and biological substances; Z87.442 Personal history of urinary calculi; Z53.29 Procedure and treatment not carried out because of patient's decision for other reasons
CPT/HCPCS: 80048; 85007; 85025; 99283; 99285; G0378